=== PATIENT | female | born 1980 | race Caucasian/White ===

== ENCOUNTER 2021-10-14 23:06 | Emergency (ER) | payer SELFPAY ==
[~2021-10-14] VITALS: Ht 167.6 cm; Wt 70.8 kg
[2021-10-14 23:12] VITALS: BP_SYST 140
--- NOTE | 2021-10-14 23:25 | NUR ---
Patient to ER [facility] for evaluation.
--- NOTE | 2021-10-14 23:31 | NUR ---
Pt BIB PD for OK TO BOOK. Pt denies pain and shows no signs of resp distress. Even rise and fall of chest and talking in full sentences. A&O x 4, ambulatory, and follows simple commands. Safety precautions in place.
[2021-10-15 01:12] VITALS: BP_SYST 135
--- NOTE | 2021-10-15 01:12 | NUR ---
Patient medically clared by ER MD, was given written and verbal discharge instructions and verbalizes understanding. ER MD discussed with patient the care provided. Patient in stable condition. ID arm band removed. NO Rx given. Pain Scale 0/0. Patient accompanied by career law clerk.
== END 2021-10-15 01:12 ==
LOC: SED 23:06
DX: Z02.89 Encounter for other administrative examinations (principal); Z88.0 Allergy status to penicillin; Z88.8 Allergy status to other drugs, medicaments and biological substances
CPT/HCPCS: 99283